=== PATIENT | female | born 1950 | race Caucasian/White ===

== ENCOUNTER → 2016-08-24 | Outpatient (CLI) | payer BC ==
[2016-08-24 12:47] LABS: BILIRUBIN,URINE NEGATIVE (NEG); COLOR,URINE YELLOW; GLUCOSE, URINE (UA) NEGATIVE (NEG); NITRATE,URINE NEGATIVE (NEG); OCCULT BLOOD,URINE NEGATIVE (NEG); PH,URINE 7.5 (5.0-8.5); PROTEIN,URINE NEGATIVE (NEG); UROBILINOGEN,URINE 0.2 mg/dL (0.2)
[2016-08-24 12:49] LABS: CLARITY,URINE CLEAR (CLEAR)
[2016-08-24 12:53] LABS: BACTERIA,URINE RARE; SQUAMOUS EPITHELIAL CELL,UR MANY; URINE SAMPLE TYPE VOID; WBC,URINE 50-100
[2016-08-24 13:12] LABS: CREATININE, URINE 57.3 MG/DL (15-500)
== END ==
LOC: MOB LAB 12:15
PROVIDERS: ATTEND Internal Medicine
DX: E11.65 Type 2 diabetes mellitus with hyperglycemia (principal)
CPT/HCPCS: 81001; 82043

== ENCOUNTER → 2016-08-31 | Outpatient (CLI) | payer BC ==
--- NOTE | 2016-08-31 10:50 | STRESSTEST ---
[facility] Interpretive Statements This 66 y.o. female is referred by Dr. Lancaster for symptoms of mostly LUNDY and near syncope. Risk factors include DMII with last A1c of 8.4 on 08/24/16 (and low microalbumin, normal renal function and normal CBC), Hypertension on 4 meds, hyperlipidemia, and Family Hx of arterial problems. She was able to reach 82% PMHR and 4.8 METs with DB=18.4K but had severe leg fatigue and sensation of SOB despite O2 sat of >90% and no ectopy and no significant ST depression. No gallop or murmur appreciated directly after exercise. Minimal VPCs did not increase and normal B/P response. IMPRESSION: Submaximal ETT without suggestion of ischemia. Consider echocardiogram, medication adjustments. [email or web address]
== END ==
LOC: EKG 09:09
PROVIDERS: ATTEND Internal Medicine
DX: R06.09 Other forms of dyspnea (principal); R42 Dizziness and giddiness; I10 Essential (primary) hypertension; E11.9 Type 2 diabetes mellitus without complications; Z82.49 Family history of ischemic heart disease and other diseases of the circulatory system
CPT/HCPCS: 93016; 93017; 93018

== ENCOUNTER → 2016-11-23 | Outpatient (CLI) | payer BC ==
--- NOTE | 2016-11-23 16:10 | DI ---
RIGHT HAND, 11/23/2016 3:09 PM: Clinical History: Metacarpophalangeal joint pain. Previous Exam: None at this facility. 3 views are submitted. There is no acute soft tissue, osseous, or joint abnormality. There is symmetr ic joint space narrowing at the MCP, IP, PIP joints. Severe DIP joint space narrowing with bony proli ferative changes present in the second and third fingers. Narrowing is present in the DIP joints of t he ring and little fingers. There is no alignment abnormality or soft tissue calcification. The carpa l joint spaces are intact. There is no juxta-articular demineralization or erosive changes of the pro ximal phalanges of the metacarpal bones to indicate rheumatoid arthritis as the etiology for the arth ritic disease. The pattern is most consistent with extensive degenerative arthritis. Readin. No acute abnormalities identified. 2. The involvement of the MCP joints, the IP joint, the PIP and DIP joints are indicative of degener ative arthritis .
[2016-11-23 17:18] LABS: HEMOGLOBIN A1C 7.56 % (4.2-6.0)
[2016-11-23 17:28] LABS: ERYTHROCYTE SEDIMENTATION RATE 15 MM/HR (0-20)
[2016-11-23 17:35] LABS: HEMATOCRIT 40.9 % (37.0-47.0); HEMOGLOBIN 13.3 g/dL (12.0-16.0); MEAN CORPUSCULAR HEMOGLOBIN 29.9 PG (27-31); MEAN CORPUSCULAR HGB CONC 32.5 g/dL (33-37); MEAN CORPUSCULAR VOLUME 91.9 FL (81-99); MEAN PLATELET VOLUME 11.2 FL (7.4-12.2); MONOCYTES % (AUTO) 6.8 % (5-15); NEUTROPHILS % (AUTO) 54.5 % (50-80); RED BLOOD COUNT 4.45 10^6/uL (4.20-5.40)
[2016-11-23 17:36] LABS: BASOPHILS # (AUTO) 0.08 10*3/UL; BASOPHILS % (AUTO) 0.9 % (0-1); EOSINOPHILS # (AUTO) 0.52 10*3/UL; EOSINOPHILS % (AUTO) 6.1 % (0-8); MONOCYTES # (AUTO) 0.58 10*3/UL (0.3-0.8); NEUTROPHILS # (AUTO) 4.65 10*3/UL; PLATELET MORPHOLOGY COMMENT NORMAL MORPHOLOGY (NORM); RBC MORPHOLOGY COMMENT NORMAL MORPHOLOGY (NORM); WBC MORPHOLOGY COMMENT NORMAL MORPHOLOGY (NORM)
--- NOTE | 2016-11-23 18:42 | DI ---
LEFT HAND, 11/23/2016 3:22 PM: Clinical History: Metacarpophalangeal joint pain of the left hand. Previous Exam: None at this facility. 3 views are submitted. There is no acute soft tissue, osseous, or joint abnormality. The carpal joint spaces are intact. There is uniform joint space narrowing involving the metacarpal phalangeal joints , the IP joint of the thumb and the PIP and DIP joints of the fingers. Soft tissue calcifications are present on both sides of the distal head of the middle phalanx of the long finger consistent with pr evious trauma. There is no juxta-articular demineralization or erosive changes of the proximal phalan ges or the metacarpal bones. No alignment abnormalities are noted. 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 Reading: Degenerative arthritis of the MCP, PIP, DIP, and IP joints of the left hand.
== END ==
LOC: MOB LAB 15:11
PROVIDERS: ATTEND Internal Medicine
DX: E11.9 Type 2 diabetes mellitus without complications (principal); M79.641 Pain in right hand; M79.642 Pain in left hand; M25.541 Pain in joints of right hand; M25.542 Pain in joints of left hand; L29.9 Pruritus, unspecified; M19.042 Primary osteoarthritis, left hand; M19.041 Primary osteoarthritis, right hand
CPT/HCPCS: 73130; 83036; 85025; 85652